=== PATIENT | male | born 1970 | race Two or more races ===

== ENCOUNTER 2018-01-19 16:54 | Emergency (ER) | payer MEDICAID ==
[~2018-01-19] VITALS: Ht 170.2 cm; Wt 84.0 kg
[2018-01-19 18:10] LABS: BASOPHILS % (AUTO) 0.4 % (0-1); EOSINOPHILS # (AUTO) 0.1 X10'3 (0-0.9); EOSINOPHILS % (AUTO) 1.6 % (0-6); HEMOGLOBIN 11.8 g/dl (14.0-17.9); MEAN CORPUSCULAR HEMOGLOBIN 31.8 PG (27.0-31.0); MEAN CORPUSCULAR HGB CONC 33.8 % (33.0-36.5); MEAN PLATELET VOLUME 9.5 FL (7.4-10.4); MONOCYTES # (AUTO) 0.4 X10'3 (0-0.9); MONOCYTES % (AUTO) 9.4 % (2-12); NEUTROPHILS # (AUTO) 3.2 X10'3 (1.8-7.7); NEUTROPHILS % (AUTO) 67.6 % (42-75); RED BLOOD COUNT 3.72 X10'6 (4.70-6.10); RED CELL DISTRIBUTION WIDTH 18.8 % (11.5-14.5); WHITE BLOOD COUNT 4.7 X10'3 (4.5-11.0)
[2018-01-19] MEDS ORDERED: normal saline 1000ML IV soln IVB ONE ×2 (18:10→18:20)
[2018-01-19] MEDS ORDERED: ondansetron/PF 4mg/2ml inj IV ONE ×2 (18:10→18:20)
[2018-01-19 18:19] LABS: INR 1.2 INR; PROTHROMBIN TIME 12.3 SECONDS (9.0-12.0)
[2018-01-19] MEDS ORDERED: morphine 4 MG/ML inj SYRINge IV ONE (18:20)
[2018-01-19 18:26] LABS: ALANINE AMINOTRANSFERASE 38 U/L (12-78); ALBUMIN 3.4 G/DL (3.4-5.0); ALBUMIN/GLOBULIN RATIO 0.7 (1.1-1.5); ALKALINE PHOSPHATASE 164 IU/L (46-116); ANION GAP 15 (8-16); ASPARTATE AMINO TRANSFERASE 78 U/L (10-37); BLOOD UREA NITROGEN 8 MG/DL (7-18); BUN/CREATININE RATIO 9.9 (5.4-32.0); CALCIUM 8.4 MG/DL (8.5-10.1); CHLORIDE 106 MMOL/L (99-107); CREATININE 0.81 MG/DL (0.60-1.10); GLUCOSE 105 MG/DL (70-104); POTASSIUM 3.8 MMOL/L (3.5-5.1); SODIUM 145 MMOL/L (135-145); TOTAL CARBON DIOXIDE 23.9 MMOL/L (24-32); TOTAL PROTEIN 8.1 G/DL (6.4-8.2); eGFR > 90 ML/MIN
[2018-01-19 18:27] LABS: PLATELET COUNT 44 X10'3 (140-440)
[2018-01-19 18:33] LABS: LIPASE 153 U/L (73-393); TROPONIN I < 0.04 NG/ML (0.0-0.05)
[2018-01-19 19:49] LABS: CLARITY,URINE CLEAR (Clear); COLOR,URINE YELLOW (Yellow); GLUCOSE, URINE NEGATIVE (Neg); KETONES,URINE NEGATIVE (Neg); LEUKOCYTE ESTERASE ,URINE NEGATIVE (Neg); NITRITES, URINE NEGATIVE (Neg); OCCULT BLOOD,URINE TRACE-INTACT (Neg); PH,URINE 7.5 (4.8-8.0); PROTEIN,URINE NEGATIVE (Neg); UROBILINOGEN,URINE 0.2 E.U/dL (0.2-1.0)
[2018-01-19 20:00] LABS: UA COLLECTION TYPE VOIDED
[2018-01-19 20:02] LABS: BACTERIA,URINE NONE SEEN /HPF (Neg); RBC,URINE NONE SEEN /HPF (0-2); SQUAMOUS EPITHELIAL CELL,UR NONE SEEN /LPF (FEW); WBC,URINE NONE SEEN /HPF (0-4)
[2018-01-19] MEDS ORDERED: ONDA4TAB9 SL (20:26)
[2018-01-19] MEDS ORDERED: fentaNYL/PF 50MCG/1 ML 2ML syringe IV ONE (20:30)
[2018-01-19 20:47] VITALS: BP 153/96
== END 2018-01-19 21:40 | disposition home or self-care (01) ==
LOC: ER 16:55
DX: R10.11 Right upper quadrant pain (principal); F10.129 Alcohol abuse with intoxication, unspecified; K70.30 Alcoholic cirrhosis of liver without ascites; K80.20 Calculus of gallbladder without cholecystitis without obstruction; K42.9 Umbilical hernia without obstruction or gangrene; E83.59 Other disorders of calcium metabolism; N29 Other disorders of kidney and ureter in diseases classified elsewhere; Y90.9 Presence of alcohol in blood, level not specified
CPT/HCPCS: 36415; 71045; 74176; 80053; 80320; 81001; 83690; 84484; 85025; 85610; 93005; 96374; 96375; 96376; 99285; A6258; J2270; J2405; J3010; J7030

== ENCOUNTER 2018-03-21 05:18 | Emergency (ER) | payer MEDICAID ==
[~2018-03-21] VITALS: Ht 167.6 cm; Wt 66.3 kg
[~2018-03-21 05:18] MED LIST: AMOX-422 PO; HYDR-3965 PO
[2018-03-21] MEDS ORDERED: HYDR-565 PO (06:17)
[2018-03-21] MEDS ORDERED: AMOX-422 PO (06:17)
[2018-03-21] MEDS ORDERED: HYDROcodone/acetaminophen 10/325mg tab PO ONE (06:30)
[2018-03-21] MEDS ORDERED: amox tr/potassium clavulanate 875/125mg TAB PO ONE (06:30)
[2018-03-21 06:54] VITALS: BP 118/73
== END 2018-03-21 07:00 | disposition home or self-care (01) ==
LOC: ER 05:20
DX: H92.02 Otalgia, left ear (principal); Z98.890 Other specified postprocedural states; Z79.899 Other long term (current) drug therapy
CPT/HCPCS: 99283

== ENCOUNTER 2018-10-14 11:13 | Emergency (ER) | payer MEDICAID ==
[~2018-10-14] VITALS: Ht 170.2 cm; Wt 82.9 kg
[~2018-10-14 11:13] MED LIST changes: -AMOX-422 PO; +CIPR7.5D2 EACH EAR; +CYCL-1 PO; +FOLI0.4T2 PO; -HYDR-3965 PO; +HYDR-4383 PO; +NAPR-56 PO; +OFLO5DRO3 OT; +ONDA4SOL2 IV; +PANT-47 PO; +PROC-8 IV; +THI100T PO
[2018-10-14] MEDS ORDERED: HYDROcodone/acetaminophen 10/325mg tab PO ONE (13:15)
[2018-10-14] MEDS ORDERED: ketorolac trometh inj. 60 MG/2 ML VIAL IM ONE (13:15)
[2018-10-14] MEDS ORDERED: HYDR-4353 PO (14:25)
[2018-10-14] MEDS ORDERED: IBUP-1986 PO (14:25)
[2018-10-14 14:37] VITALS: BP 144/79
== END 2018-10-14 14:39 | disposition home or self-care (01) ==
LOC: ER 11:13
DX: S39.012A Strain of muscle, fascia and tendon of lower back, initial encounter (principal); R05 Cough; F17.200 Nicotine dependence, unspecified, uncomplicated; Z79.899 Other long term (current) drug therapy; W18.39XA Other fall on same level, initial encounter; Y93.89 Activity, other specified; Y92.89 Other specified places as the place of occurrence of the external cause; Y99.8 Other external cause status
CPT/HCPCS: 72100; 96372; 99284; J1885

== ENCOUNTER 2018-10-21 10:35 | Emergency (ER) | payer MEDICAID ==
[~2018-10-21] VITALS: Ht 170.2 cm; Wt 81.8 kg
[~2018-10-21 10:35] MED LIST changes: +HYDR-4353 PO; +IBUP-1986 PO
--- NOTE | 2018-10-21 11:00 | NUR ---
PATIENT TO ER #6 WITH C/O LEG AND BACK PAIN POST FALL 2 WEEKS AGO. ALSO C/O LEFT JAW/TOOTH PAIN X 3 WEEKS, RADIATING TO LEFT EAR. PROVIDER AT THE BEDSIDE TO EVALUATE PATIENT.
[2018-10-21 11:02] VITALS: BP 146/89
[2018-10-21] MEDS ORDERED: LIDOcaine 5% patch TP STA (11:21)
[2018-10-21] MEDS ORDERED: ketorolac tromethamine 15mg/ml inj. IM ONE (11:25)
[2018-10-21] MEDS ORDERED: PRED20TA PO (11:27)
[2018-10-21] MEDS ORDERED: CYCL-1 PO (11:27)
[2018-10-21] MEDS ORDERED: AMOX-580 PO (11:27)
== END 2018-10-21 12:08 | disposition home or self-care (01) ==
LOC: ER 10:35
DX: M54.5 Low back pain (principal); K08.89 Other specified disorders of teeth and supporting structures; K02.9 Dental caries, unspecified; F17.200 Nicotine dependence, unspecified, uncomplicated; Z98.890 Other specified postprocedural states; Z79.899 Other long term (current) drug therapy
CPT/HCPCS: 96372; 99283; J1885

== ENCOUNTER 2019-02-04 21:31 | Emergency (ER) | payer MEDICAID ==
[~2019-02-04] VITALS: Ht 170.2 cm; Wt 78.8 kg
[~2019-02-04 21:31] MED LIST changes: +CEFD300C3 PO; -CIPR7.5D2 EACH EAR; -CYCL-1 PO; -FOLI0.4T2 PO; -HYDR-4353 PO; -IBUP-1986 PO; +LACT1CAP26 PO; +METR-159 PO; +MULT-1179 PO; -NAPR-56 PO; -OFLO5DRO3 OT; -ONDA4SOL2 IV; -PANT-47 PO; -PROC-8 IV; -THI100T PO; +URSO300C2 PO
[2019-02-04 22:18] LABS: CLARITY,URINE CLEAR (Clear); COLOR,URINE AMBER (Yellow); GLUCOSE, URINE NEGATIVE (Neg); KETONES,URINE NEGATIVE (Neg); LEUKOCYTE ESTERASE ,URINE NEGATIVE (Neg); OCCULT BLOOD,URINE NEGATIVE (Neg); PH,URINE 5.5 (4.8-8.0); PROTEIN,URINE 30 mg/dl (Neg); UA COLLECTION TYPE URINAL
[2019-02-04 22:19] LABS: BASOPHILS % (AUTO) 0.5 % (0-1); EOSINOPHILS # (AUTO) 0.2 X10'3 (0-0.9); EOSINOPHILS % (AUTO) 3.2 % (0-6); HEMATOCRIT 37.5 % (42.0-52.0); LYMPHOCYTES # (AUTO) 0.9 X10'3 (1.1-4.8); LYMPHOCYTES % (AUTO) 16.7 % (21-51); MEAN CORPUSCULAR HEMOGLOBIN 37.8 PG (27.0-31.0); MEAN CORPUSCULAR HGB CONC 34.7 g/dL (33.0-36.5); MEAN CORPUSCULAR VOLUME 108.8 FL (78-98); MEAN PLATELET VOLUME 8.9 FL (7.4-10.4); MONOCYTES % (AUTO) 17.1 % (2-12); NEUTROPHILS # (AUTO) 3.5 X10'3 (1.8-7.7); NEUTROPHILS % (AUTO) 62.5 % (42-75); RED BLOOD COUNT 3.44 X10'6 (4.70-6.10); RED CELL DISTRIBUTION WIDTH 17.2 % (11.5-14.5); WHITE BLOOD COUNT 5.6 X10'3 (4.5-11.0)
[2019-02-04 22:20] LABS: NITRITES, URINE NEGATIVE (Neg)
[2019-02-04 22:32] LABS: BACTERIA,URINE NONE SEEN /HPF (Neg); MUCUS STRANDS MANY /LPF (Neg); RBC,URINE 0-2 /HPF (0-2); SQUAMOUS EPITHELIAL CELL,UR FEW /LPF (FEW); WBC,URINE 0-4 /HPF (0-4)
[2019-02-04 22:33] LABS: ALANINE AMINOTRANSFERASE 26 U/L (12-78); ALBUMIN 3.3 G/DL (3.4-5.0); ALKALINE PHOSPHATASE 129 IU/L (46-116); ANION GAP 7 (8-16); ASPARTATE AMINO TRANSFERASE 45 U/L (10-37); BILIRUBIN,TOTAL 3.4 MG/DL (0.1-1.0); BLOOD UREA NITROGEN 17 MG/DL (7-18); BUN/CREATININE RATIO 22.7 (5.4-32.0); CALCIUM 8.8 MG/DL (8.5-10.1); CHLORIDE 103 MMOL/L (99-107); CREATININE 0.75 MG/DL (0.60-1.10); GLUCOSE 102 MG/DL (70-104); POTASSIUM 3.7 MMOL/L (3.5-5.1); SODIUM 136 MMOL/L (135-145); TOTAL CARBON DIOXIDE 25.9 MMOL/L (24-32); eGFR > 90 ML/MIN
[2019-02-04 22:34] LABS: ALBUMIN/GLOBULIN RATIO 0.7 (1.1-1.5)
[2019-02-04 22:44] LABS: PLATELET COUNT 44 X10'3 (140-440)
[2019-02-05 00:05] LABS: LIPASE 162 U/L (73-393)
[2019-02-05] MEDS ORDERED: HYDROcodone/acetaminophen 10/325mg tab PO ONE (01:10)
[2019-02-05] MEDS ORDERED: ondansetron 4mg rapidly disintigrating tab PO ONE (01:10)
[2019-02-05] MEDS ORDERED: ONDA4TAB6 PO (01:38)
[2019-02-05 02:24] VITALS: BP 134/78
[2019-02-06] MEDS ORDERED: HYDR-4383 PO (16:00)
== END 2019-02-05 02:25 | disposition home or self-care (01) ==
LOC: ER 21:31
DX: K94.23 Gastrostomy malfunction (principal); K83.1 Obstruction of bile duct; Z98.890 Other specified postprocedural states; Z79.2 Long term (current) use of antibiotics; Z79.899 Other long term (current) drug therapy
CPT/HCPCS: 36415; 80053; 81001; 83690; 85025; 85610; 99283